=== PATIENT | male | born 1955 | race Caucasian/White ===

== ENCOUNTER → 2018-10-17 | Day surgery (SDC) | payer BC ==
[~2018-10-17] MED LIST: ASPIR 8181 MG PO; FENTANYL CITRATE/PF 100MCG/2 ML INJ ONE; IRBESARTAN75 MG PO; PANTOPRAZOLE SO40 MG PO; PROPOFOL IV EMULSION 10 MG/ML 20 ML VIAL ONE
--- OUTSIDE RECORDS SUMMARY | 2018-10-17 11:06 | XMS REPORT ---
Author [facility] Address Unknown Phone Unavailable Care Team Providers Care Brick Loader Name Role Phone aHley SPENCER Unavailable Unavailable Payers Payer Name Policy Type Policy Number Effective Date Expiration Date Problems This patient has no known problems. Allergies, Adverse Reactions, Alerts Allergy Name Allergy Type Status Severity Reaction(s) Onset Date Inactive Date Treating Clinician Comments No Known Allergies DA Active U 2017-08-13 00:00:00 Medications This patient has no known medications. Results Test Description Test Time Test Comments Text Results Atomic Results Result Comments RAD, CHEST, 2 VIEWS 2018-10-02 09:27:00 Reason for Exam:->follicular lymphoma FINAL REPORT PA and lateral chest, 10/02/2018 There is been no change since 03/29/2018 in the normal appearances of the heart, lungs and mediastinum. No significant osseous abnormalities are identified although there is a mild scoliosis with some hypertrophic changes of the thoracic spine. CONCLUSION: No significant change. Signed: Vincenzo Robertson Verified Date/Time: 10/02/2018 09:27:32 Reading Location: [facility] Diagnostic Imaging Reading Room - [facility] 1.310.12 , CHEST, 2 VIEWS 2018-03-29 14:20:00 Reason for Exam:->C82.03,I10,E78.2,J06.9 FINAL REPORT Chest, 2 views. Clinical History: C82.03,I10,E78.2,J06.9 Comparison Study: CT scan dated December 18, 2017 Findings: The heart and lungs are within normal limits. The pleural spaces are clear. Degenerative changes are seen. Impression: No active cardiopulmonary disease. Signed: Aleksandr Johanseneport Verified Date/Time: 03/29/2018 14:20:11 Reading Location: [facility] [id number] Consult Reading Room REHENSIVE METABOLIC PANEL 2018-03-22 17:16:00 SODIUM (test code=NA) 140 mmol/L 136-145 POTASSIUM (test code=K) 4.4 mmol/L 3.5-5.1 CHLORIDE (test code=CL) 108.0 mmol/L 98-107 CARBON DIOXIDE (test code=CO2) 26.0 mmol/L 21-32 ANION GAP (test code=GAP) 10.4 10-20 GLUCOSE (test code=GLU) 98 mg/dL 74-106 BLOOD UREA NITROGEN (test code=BUN) 18 mg/dL 7-18 GLOMERULAR FILTRATION RATE (test code=GFR) > 60 mL/min >=60 Estimated GFR by using Modified MDRD formula.Chronic kidney disease is defined as either kidney damageor GFR <60 mL/min/1.73 m2 for >3 months. CREATININE (test code=CREAT) 0.90 mg/dL 0.7-1.3 BUN/CREATININE RATIO (test code=BUN/CREA) 19.0 10-20 TOTAL PROTEIN (test code=PROT) 6.7 gram/dL 6.4-8.2 ALBUMIN (test code=ALB) 3.8 g/dL 3.4-5.0 GLOBULIN (test code=GLOB) 2.9 gram/dL 2.7-4.2 ALBUMIN/GLOBULIN RATIO (test code=A/G) 1.3 0.75-1.50 CALCIUM (test code=CA) 8.6 mg/dL 8.5-10.1 BILIRUBIN TOTAL (test code=BILT) 0.40 mg/dL 0.0-1.0 SGOT/AST (test code=AST) 21 IUnit/L 15-37 SGPT/ALT (test code=ALT) 27 IUnit/L 12-78 ALKALINE PHOSPHATASE TOTAL (test code=ALKP) 56 IUnit/L 45-117 Note change in reference range due to change in reagent. LACTIC DEHYDROGENASE(LDH)2018-03-22 17:16:00* Test Item Value Reference Range Comments LACTIC DEHYDROGENASE(LDH) (test code=LDH) 214 IUnit/L 84-246 COMPREHENSIVE METABOLIC [id number] 17:07:00* Test Item Value Reference Range Comments SODIUM (test code=NA) 140 mmol/L 136-145 POTASSIUM (test code=K) 4.4 mmol/L 3.5-5.1 CHLORIDE (test code=CL) 108.0 mmol/L 98-107 CARBON DIOXIDE (test code=CO2) mmol/L 21-32 ANION GAP (test code=GAP) 10-20 GLUCOSE (test code=GLU) mg/dL 74-106 BLOOD UREA NITROGEN (test code=BUN) mg/dL 7-18 GLOMERULAR FILTRATION RATE (test code=GFR) mL/min >=60 CREATININE (test code=CREAT) mg/dL 0.7-1.3 BUN/CREATININE RATIO (test code=BUN/CREA) 10-20 TOTAL PROTEIN (test code=PROT) gram/dL 6.4-8.2 ALBUMIN (test code=ALB) g/dL 3.4-5.0 GLOBULIN (test code=GLOB) gram/dL 2.7-4.2 ALBUMIN/GLOBULIN RATIO (test code=A/G) 0.75-1.50 CALCIUM (test code=CA) mg/dL 8.5-10.1 BILIRUBIN TOTAL (test code=BILT) mg/dL 0.0-1.0 SGOT/AST (test code=AST) IUnit/L 15-37 SGPT/ALT (test code=ALT) IUnit/L 12-78 ALKALINE PHOSPHATASE TOTAL (test code=ALKP) IUnit/L 45-117 LACTIC DEHYDROGENASE(LDH)2018-03-22 17:07:00* Test Item Value Reference Range Comments LACTIC DEHYDROGENASE(LDH) (test code=LDH) IUnit/L 84-246 CBC W/AUTO [id number] 16:55:00* Test Item Value Reference Range Comments WHITE BLOOD CELL (test code=WBC) 6.3 K/mm3 4.5-12.5 RED BLOOD CELL (test code=RBC) 4.64 mill/mm3 4.0-5.8 HEMOGLOBIN (test code=HGB) 13.4 gram/dL 13.0-17.5 HEMATOCRIT (test code=HCT) 41.7 % 42.0-52.0 MEAN CELL VOLUME (test code=MCV) 89.9 fL 80-98 MEAN CELL HGB (test code=MCH) 28.9 picogram 27.0-33.0 MEAN CELL HGB CONCETRATION (test code=MCHC) 32.1 gram/dL 33.0-36.0 RED CELL DISTRIBUTION WIDTH (test code=RDW) 12.7 % 11.6-16.2 RED CELL DISTRIBUTION WIDTH SD (test code=RDW-SD) 41.8 fL 37.0-51.0 PLATELET COUNT (test code=PLT) 279 K/mm3 150-450 MEAN PLATELET VOLUME (test code=MPV) 9.4 fL 6.7-11.0 NEUTROPHIL % (test code=NT%) 63.1 % 39.0-69.0 IMMATURE GRANULOCYTE % (test code=IG%) 0.5 % 0.0-5.0 LYMPHOCYTE % (test code=LY%) 27.2 % 25.0-55.0 MONOCYTE % (test code=MO%) 7.0 % 0.0-10.0 EOSINOPHIL % (test code=EO%) 1.6 % 0.0-5.0 BASOPHIL % (test code=BA%) 0.6 % 0.0-1.0 NUCLEATED RBC % (test code=NRBC%) 0.0 % 0-0 NEUTROPHIL # (test code=NT#) 3.99 K/mm3 1.8-7.7 IMMATURE GRANULOCYTE # (test code=IG#) 0.03 x10 3/uL 0-0.03 LYMPHOCYTE # (test code=LY#) 1.72 K/mm3 1.0-5.0 MONOCYTE # (test code=MO#) 0.44 K/mm3 0-0.8 EOSINOPHIL # (test code=EO#) 0.10 K/mm3 0.0-0.5 BASOPHIL # (test code=BA#) 0.04 K/mm3 0.0-0.2 NUCLEATED RBC # (test code=NRBC#) 0.00 K/mm3 0.0-0.1 MANUAL DIFF REQUIRED (test code=MDIFF) NO CT, CHEST, WITH [id number] 15:43:00FINAL REPORT CT of the Chest dated 12/18/2017 COMPARISON: September 21, 2017 CLINICAL INFORMATION: pulmonary nodule Comment: Axial images of the chest were obtained from thoracic inlet to the upper abdomen with intravenous contrast. This exam was performed according to our departmental dose-optimization program, which includes automated exposure control, adjustment of the mA and/or kV according to patient size and/or use of interactive reconstruction technique. Heart is normal in size. Great vessels are unremarkable. No adenopathy in the mediastinum or perihilar region. Trachea and mainstem bronchi are patent. The previously noted pulmonary parenchyma disease in the lingula has resolved. Both lungs are clear. No nodular, mass lesion or airspace disease is noted. No interstitial disease or bronchiectasis is present. No pleural effusion or p leural based mass is seen. Visualized upper abdomen demonstrates no focal lesion . Impression: Unremarkable CT of the chest. Signed: Tali Liangeport Verifie mario Date/Time: 12/18/2017 15:43:21 Reading Location: [address] Body Reading Room -[id number] 10:17:00* Test Item Value Reference Range Comments POC-CREATININE (TRINO) (test bgtd=0276) 0.9 mg/dL 0.6-1.[address] [address] POC-EGFR (TRINO) (test ossw=9301) 85 mL/min/1.73M2 CT, CHEST, WITH [id number] 15:00:00FINAL REPORT HISTORY: SOLITARY PULMONARY NODULE COMPARISON : None Technique : Multiple axial images of the chest were performed from the lung apices to the lung bases with the administration of IV contrast. Images were presented in both the lung and soft tissue windows. This exam was performed according to our departmental dose optimization program which includes automated exposure control, adjustment of the mA and/or kV according to patient size and/or use of iterative reconstructive technique. Comment: The thyroid gland is within normal limits. There is atherosclerotic vascular disease. The patient does have some coronary atherosclerosis. There is no hilar, mediastinal or axillary lymphadenopathy. The visualized portions of the liver, spleen, adrenal glands, pancreas, and kidneys are within normal limits. Multilevel degenerative disc changes of the thoracolumbar spine are seen. No pneumothorax or pleural effusion is seen. In the lingula, there is a small focal area of consolidation with some accompanying reticular-nodular densities. The findings could be a sequela of aspiration or focal area of some pneumonitis. Close CT follow-up is advised after treatment to document resolution to exclude the possibility of a mass. Impression: Small focal area of consolidation in the lingula with some accompanying reticular nodu lar densities. Findings could be a sequela of aspiration or pneumonitis. Close C T follow-up is advised after treatment to document resolution. Signed: Jacob Cat MDReport Verified Date/Time: 09/21/2017 15:00:57 Reading Location: [address] Body Reading Room Electronically signed by: PADMA CAT M.D. on 0 09/21/2017 03:00 PM [id number] 14:46:00* Test Item Value Reference Range Comments POC-CREATININE (TRINO) (test obqh=7853) 0.9 mg/dL 0.6-1.3 [address]ED AT [address] [address] POC-EGFR (TRINO) (test aywo=0351) 85 mL/min/1.73M2
--- OUTSIDE RECORDS SUMMARY | 2018-10-17 11:06 | XMS REPORT | Clinical Summary ---
Author Author JACQUELINE [facility] Address Unknown Phone Unavailable Care Team Providers Care Deck Engine Operator Name Role Phone PCP Unavailable Allergies No Known Allergies Medications Not on file Active Problems Not on file Encounters Care Team Description Date Type Specialty Elliott Mar MD Follicular lymphoma grade I of intra-abdominal lymph nodes (HCC) 10/02/2018 Hospital Radiology Encounter Elliott Mar MD Follicular lymphoma grade I of intra-abdominal lymph nodes (HCC) (Primary Dx) 10/01/2018 Outside Orders Radiology Elliott Mar MD Follicular lymphoma grade I of intra-abdominal lymph nodes (HCC); Essential hypertension, benign; Mixed hyperlipidemia; Acute upper respiratory infection 03/29/2018 Hospital Radiology Encounter Elliott Mar MD Follicular lymphoma grade I of intra-abdominal lymph nodes (HCC) (Primary Dx); Essential hypertension, benign; Mixed hyperlipidemia; Acute upper respiratory infection 03/29/2018 Outside Orders Radiology Elliott Mar MD Lung nodule 12/18/2017 Hospital Radiology Encounter Elliott Mar MD Lung nodule (Primary Dx) 12/18/2017 Outside Orders Radiology after 10/16/2017 Social History Date Tobacco Use Types Packs/Day Years Used Never Assessed Sex Assigned at Date Recorded Not on file Industry Job Start Date Occupation Not on file Not on file Not on file Travel End Travel History Travel Start No recent travel history available. Last Filed Vital Signs Not on file Plan of Treatment Not on file Procedures Comments Procedure Name Priority Date/Time Associated Diagnosis XR CHEST 2 VIEWS Routine 10/02/2018 Follicular lymphoma grade 9:15 AM CDT I of intra-abdominal lymph nodes (HCC) XR CHEST 2 VIEWS Routine 03/29/2018 Follicular lymphoma grade 2:10 PM [employer] I of intra-abdominal lymph nodes (HCC) Essential hypertension, benign Mixed hyperlipidemia Acute upper respiratory infection CT CHEST WITH IV CONTRAST Routine 12/18/2017 Lung nodule 10:25 AM CDT POCT-CREATININE Routine 12/18/2017 10:13 AM CDT after 10/16/2017 Results * XR chest 2 views (10/02/2018 9:15 AM CDT) Only the most recent of 2 results within the time period is included. Specimen Narrative Performed At FINAL REPORT [place] PA and lateral chest, 10/02/2018 There is been no change since 03/29/2018 in the normal appearances of the heart, lungs and mediastinum. No significant osseous abnormalities are identified although there is a mild scoliosis with some hypertrophic changes of the thoracic spine. CONCLUSION: No significant change. Signed: Gregory Robertson MD Report Verified Date/Time:10/02/2018 09:27:32 Reading Location: [facility] Diagnostic Imaging Reading Room - [facility] F1 1.310.12 Procedure Note Interface, External Ris In - 10/02/2018 9:29 AM CDT FINAL REPORT PA and lateral chest, 10/02/2018 There is been no change since 03/29/2018 in the normal appearances of the heart, lungs and mediastinum. No significant osseous abnormalities are identified although there is a mild scoliosis with some hypertrophic changes of the thoracic spine. CONCLUSION: No significant change. Signed: Gregory Robertson MD Report Verified Date/Time: 10/02/2018 09:27:32 Reading Location: [facility] Diagnostic Imaging Reading Room - [facility] F1 1.310.12 Performing Organization Address City/State/Zipcode Phone Number [facility] * CT chest with IV contrast (12/18/2017 10:25 AM CDT) Specimen Narrative Performed At FINAL REPORT [employer] CT of the Chest dated 12/18/2017 COMPARISON: September 21, 2017 CLINICAL INFORMATION: pulmonary nodule Comment:Axial images of the chest were obtained from thoracic inlet to the upper abdomen with intravenous contrast. This exam was performed according to our departmental dose-optimization program, which includes automated exposure control, adjustment of the mA and/or kV according to patient size and/or use of interactive reconstruction technique. Heart is normal in size.Great vessels are unremarkable. No adenopathy in the mediastinum or perihilar region. Trachea and mainstem bronchi are patent. The previously noted pulmonary parenchyma disease in the lingula has resolved. Both lungs are clear.No nodular, mass lesion or airspace disease is noted.No interstitial disease or bronchiectasis is present. No pleural effusion or pleural based mass is seen. Visualized upper abdomen demonstrates no focal lesion. Impression: Unremarkable CT of the chest. Signed: Tali Liang MD Report Verified Date/Time:12/18/2017 15:43:21 Reading Location: [address] Body Reading Room Procedure Note Interface, External Ris In - 12/18/2017 3:45 PM CDT FINAL REPORT CT of the Chest dated 12/18/2017 [...] bronchiectasis is present. No pleural effusion or pleural based mass is seen. Visualized upper abdomen demonstrates no focal lesion. Impression: Unremarkable CT of the chest. Signed: Tali Liang MD Report Verified Date/Time: 12/18/2017 15:43:21 Reading Location: [facility] C[facility] Body Reading Room Performing Organization Address City/State/Zipcode Phone Number [facility] * POC-Creatinine (12/18/2017 10:13 AM CDT) POC-Creatinine 0.9Comment: TESTED AT [facility]-KG 0.6 - 1.3 mg/dL [facility] [address] [place] [address] POC-EGFR 85 mL/min/1.73M2 [facility] Specimen Blood Narrative Performed At Performing Organization Address City/State/Zipcode Phone Number [facility] [address] [place] [address] [facility] after 10/16/2017 Insurance Payer Benefit Subscriber ID Type Phone Address Plan / Group BLUE CROSS/BLUE SHIELD BCBS PPO xxxxxxxxxxxx PPO [phone] [address] [place] [address] CHOICE
--- OUTSIDE RECORDS SUMMARY | 2018-10-17 11:06 | XMS REPORT | Clinical Summary ---
Author Author [facility] Address Unknown Phone Unavailable Care Team Providers Care Lard Bleacher Name Role Phone Wilner Dove MD PCP Allergies Not on File Medications Not on file Active Problems Not on file Social History Date Tobacco Use Types Packs/Day Years Used Never Assessed Sex Assigned at Date Recorded Not on file Industry Job Start Date Occupation Not on file Not on file Not on file Travel End Travel History Travel Start No recent travel history available. Last Filed Vital Signs Not on file Plan of Treatment Health Maintenance Due Date Last Done Comments COLONOSCOPY SCREENING 2004 SHINGLES VACCINES (#1) 2004 INFLUENZA VACCINE 09/19/2018 Procedures Comments Procedure Name Priority Date/Time Associated Diagnosis ESTIMATED GFR Routine 09/27/2018 4:09 PM CDT LDH Routine 09/27/2018 Follicular lymphoma grade 4:09 PM CDT I of intra-abdominal lymph nodes (HCC) Mixed hyperlipidemia Acute respiratory disease COMPREHENSIVE METABOLIC Routine 09/27/2018 Follicular lymphoma grade PANEL 4:09 PM CDT I of intra-abdominal lymph nodes (HCC) Mixed hyperlipidemia Acute respiratory disease HC COMPLETE BLD COUNT Routine 09/27/2018 Follicular lymphoma grade W/AUTO DIFF 4:09 PM CDT I of intra-abdominal lymph nodes (HCC) Mixed hyperlipidemia Acute respiratory disease after 10/16/2017 Results * Estimated GFR (09/27/2018 4:09 PM CDT) Estimated GFR 70 mL/min/1.73 m2 [place] Comment: MANDAENKEVYN Fernández [facility] G1 >=90 Normal or high G2 60-89Mildly decreased [id number] Mildly to moderately decreased [id number] Moderately to severely decreased G4 15-29Severely decreased G5 <15Kidney failure The eGFR was calculated using the Chronic Kidney Disease Epidemiology Collaboration (CKD-EPI) equation. Interpretation is based on recommendations of the National Kidney Foundation-Kidney Disease Outcomes Quality Initiative (NKF-KDOQI) published in 2014. Specimen Plasma specimen Performing Organization Address City/State/Zipcode Phone Number [facility] [address] [facility] [place] [address] PATHOLOGY AND GENOMIC MEDICINE [facility] [address] * CBC with platelet and differential (09/27/2018 4:09 PM CDT) WBC 6.0 4.2 - 11.0 k/uL [facility] RBC 4.52 4.04 - 5.86 m/uL [facility] HGB 13.1 13.0 - 17.3 g/dL [facility] HCT 40.6 34.0 - 45.0 % [facility] MCV 89.8 80.0 - 98.0 fL [facility] MCH 29.0 27.0 - 34.0 pg [facility] MCHC 32.3 31.5 - 36.5 g/dL [facility] RDW - SD 42.2 37.0 - 51.0 fL [facility] MPV 10.2 7.4 - 10.4 fL [facility] Platelet count 248 150 - 400 k/uL [facility] Nucleated RBC 0.00 /100 WBC [facility] Neutrophils 63.5 36.0 - 66.0 % [facility] Lymphocytes 27.6 24.0 - 44.0 % [facility] Monocytes 7.0 (H) 0.0 - 6.0 % [facility] Eosinophils 1.2 0.0 - 6.0 % [facility] Basophils 0.5 0.0 - 1.2 % [facility] Immature 0.2 0.0 - 1.0 % [place] granulocytes [facility] Specimen Blood Performing Organization Address City/State/Zipcode Phone Number [facility] [address] [phone] PATHOLOGY AND GENOMIC MEDICINE [facility] [address] [place] [address] * LDH (09/27/2018 4:09 PM CDT) LDH 260 (H) 87 - 225 U/L [facility] Specimen Plasma specimen Performing Organization Address City/[facility] Phone Number [facility] [address] [phone] PATHOLOGY AND GENOMIC MEDICINE [address] * Comprehensive metabolic panel (09/27/2018 4:09 PM CDT) Sodium 141 135 - 150 mEq/L [facility] Potassium 3.8 3.5 - 5.0 mEq/L [facility] Chloride 104 98 - 112 mEq/L [facility] CO2 23 (L) 24 - 31 mmol/L [facility] Anion gap 14@ANIO 7 - 15 mEq/L [facility] BUN 15 7 - 18 mg/dL [facility] Creatinine 1.10 0.70 - 1.20 mg/dL [facility] Glucose 73 65 - 100 mg/dL [facility] Calcium 9.5 8.8 - 10.2 mg/dL [facility] Protein 6.9 6.3 - 8.3 g/dL [facility] Albumin 4.2 3.5 - 5.0 g/dL [facility] A/G ratio 1.6 0.7 - 3.8 [facility] Alkaline 56 0 - 129 U/L [place] phosphatase [facility] AST 29 10 - 50 U/L [facility] ALT 28 5 - 50 U/L [facility] Total bilirubin 0.6 0.2 - 1.2 mg/dL [facility] Specimen Plasma specimen Performing Organization Address City/State/Zipcode Phone Number [facility] OF [address] [place] [address] PATHOLOGY AND GENOMIC MEDICINE [facility] [address] [place] [address] HOSPITAL after 10/16/2017 Insurance Type Payer Benefit Subscriber ID Effective Phone Address Plan / Dates Group PPO BCBS ANTHEM xxxxxxxxxxxx [id number] JUNIOR CROSS resent Advance Directives For more information, please contact: [phone] Patient It Systems Analyst Explanation Type Date Recorded Advance Directives, Living Will and Medical Power of Complex Care Nurse Practitioner
[2018-10-17 12:50] VITALS: BP 122/77
== END | disposition home or self-care (01) ==
LOC: OR 10:46
PROVIDERS: ATTEND Internal Medicine
DX: K21.0 Gastro-esophageal reflux disease with esophagitis (principal); K31.89 Other diseases of stomach and duodenum; R14.0 Abdominal distension (gaseous); R10.9 Unspecified abdominal pain; C85.90 Non-Hodgkin lymphoma, unspecified, unspecified site; K27.9 Peptic ulcer, site unspecified, unspecified as acute or chronic, without hemorrhage or perforation; Z01.810 Encounter for preprocedural cardiovascular examination; I10 Essential (primary) hypertension; E78.00 Pure hypercholesterolemia, unspecified; K29.70 Gastritis, unspecified, without bleeding; K44.9 Diaphragmatic hernia without obstruction or gangrene
CPT/HCPCS: 43239; 93005; J2704; J3010